=== PATIENT | male | born 1945 | race Caucasian/White ===

== ENCOUNTER 2018-01-22 15:31 | Inpatient (IN) | payer MEDICARE, MEDICAID ==
[~2018-01-22] VITALS: Ht 177.8 cm; Wt 92.1 kg
[2018-01-22] MEDS ORDERED: ASPIR 8181 MG ORAL (15:40)
[2018-01-22] MEDS ORDERED: PATANOL1 DROP OD (15:40)
[2018-01-22] MEDS ORDERED: BENADRYL25 M3 PO ×2 (15:40)
[2018-01-22] MEDS ORDERED: LISINOPRIL20 MG ORAL (15:40)
[2018-01-22] MEDS ORDERED: ATIVAN1 MG ORAL (15:40)
[2018-01-22] MEDS ORDERED: LIPITOR80 MG ORAL (15:40)
[2018-01-22] MEDS ORDERED: ALLEGRA-D 24 H1 EACH PO (15:40)
[2018-01-22] MEDS ORDERED: KENALOG 0.1% CR15 GM APPLIC (15:40)
[2018-01-22] MEDS ORDERED: MOM30 ML ORAL (15:40)
[2018-01-22] MEDS ORDERED: NAMENDA5 MG ORAL (15:40)
[2018-01-22] MEDS ORDERED: METFORMIN HCL850 M1 ORAL (15:40)
[2018-01-22 15:44] VITALS: BP 100/58
--- NOTE | 2018-01-22 16:12 | Emergency Room Report ---
History of Present Illness General Chief Complaint: Skin Rash/Abscess Source: Medical Record, EMS, PMD Present Illness HPI This patient presents from a long term facility. He was sent in by his primary care physician. Apparently the patient has developed a rash and a urinary tract infection. The patient himself has no specific complaints. Patient has a history of CVA with hemiplegia, hypertension, diabetes, hyperlipidemia. Allergies: Coded Allergies: No Known Allergies (Unverified , 01/22/18) Patient History Past Medical History: see triage record, DM, HTN, CA, CAD, GERD, CVA/TIA, psych hx Social History: Denies: smoking, alcohol use, drug use Reviewed Nursing Documentation: PMH: Agreed; PSxH: Agreed Nursing Documentation-PMH Hx Cardiac Problems: Yes - Hypotension, HLD Hx Hypertension: Yes Hx Pacemaker: No Hx Asthma: Yes - Pneumonitis Hx COPD: No Hx Diabetes: No Hx Cancer: No Hx Gastrointestinal Problems: No - GERD Hx Dialysis: No History Of Psychiatric Problem: Yes - Depression, anxiety Hx Neurological Problems: Yes - Dementia, cataract Hx Cerebrovascular Accident: Yes - Cerebral infarction, hemiplegia, hemiparesis Hx Seizures: No Review of Systems All Other Systems: negative except mentioned in HPI Physical Exam Vital Signs Date Time Temp Pulse Resp B/P (MAP) Pulse Ox O2 Delivery O2 Flow Rate FiO2 01/22/18 15:24 97.7 64 16 95/67 93 Room Air Sp02 EP Interpretation: reviewed, normal General Appearance: no apparent distress, alert, GCS 15, non-toxic Head: normocephalic, atraumatic Eyes: bilateral eye normal inspection, bilateral eye PERRL ENT: hearing grossly normal, normal pharynx, no angioedema, normal voice Neck: full range of motion, supple/symm/no masses Respiratory: chest non-tender, lungs clear, normal breath sounds, no respiratory distress, no retraction, no accessory muscle use, speaking full sentences Cardiovascular #1: regular rate, rhythm, no edema Gastrointestinal: normal bowel sounds, non tender, soft, non-distended, no guarding, no rebound Rectal: deferred Musculoskeletal: non-tender, other - hemiplegia at baseline Neurologic: alert, oriented x3, responsive, speech normal, other - Hemiplegia at baseline. Psychiatric: mood/affect normal, no suicidal/homicidal ideation Skin: warm/dry, well hydrated, other - diffuse maculopapular rash with excoriations. Medical Decision Making Diagnostic Impression: Primary Impression: Rash and other nonspecific skin eruption Additional Impression: Lactic acidosis ER Course Patient has a nonspecific diffuse maculopapular rash of uncertain etiology. It appears to be pruritic. Scabies is a possibility. The patient also has lactic acidosis of uncertain etiology. The patient will be admitted for further evaluation and treatment. Laboratory Tests Test 01/22/18 16:35 01/22/18 18:00 White Blood Count 6.5 K/UL (4.8-10.8) Red Blood Count 4.92 M/UL (4.70-6.10) Hemoglobin 14.8 G/DL (14.2-18.0) Hematocrit 43.4 % (42.0-52.0) Mean Corpuscular Volume 88 FL (80-99) Mean Corpuscular Hemoglobin 30.1 PG (27.0-31.0) Mean Corpuscular Hemoglobin Concent 34.1 G/DL (32.0-36.0) Red Cell Distribution Width 11.9 % (11.6-14.8) Platelet Count 203 K/UL (150-450) Mean Platelet Volume 8.7 FL (6.5-10.1) Neutrophils (%) (Auto) 54.1 % (45.0-75.0) Lymphocytes (%) (Auto) 25.8 % (20.0-45.0) Monocytes (%) (Auto) 9.4 % (1.0-10.0) Eosinophils (%) (Auto) 9.9 % (0.0-3.0) H Basophils (%) (Auto) 0.9 % (0.0-2.0) Urine Color Yellow Urine Appearance Clear Urine pH 5 (4.5-8.0) Urine Specific [place] 1.020 (1.005-1.035) Urine Protein Negative (NEGATIVE) Urine Glucose (UA) Negative (NEGATIVE) Urine Ketones Negative (NEGATIVE) Urine Blood Negative (NEGATIVE) Urine Nitrite Negative (NEGATIVE) Urine Bilirubin Negative (NEGATIVE) Urine Urobilinogen 1 MG/DL (0.0-1.0) H Urine Leukocyte Esterase Negative (NEGATIVE) Sodium Level 138 MMOL/L (136-145) Potassium Level 4.3 MMOL/L (3.5-5.1) Chloride Level 104 MMOL/L (98-107) Carbon Dioxide Level 24 MMOL/L (21-32) Anion Gap 10 mmol/L (5-15) Blood Urea Nitrogen 18 mg/dL (7-18) Creatinine 1.1 MG/DL (0.55-1.30) Estimate Glomerular Filtration Rate mL/min (>60) Glucose Level 83 MG/DL (74-106) Lactic Acid Level 4.00 mmol/L (0.4-2.0) H Pending Calcium Level 9.2 MG/DL (8.5-10.1) Total Bilirubin 0.4 MG/DL (0.2-1.0) Aspartate Amino Transferase (AST) 16 U/L (15-37) Alanine Aminotransferase (ALT) 21 U/L (12-78) Alkaline Phosphatase 85 U/L (46-116) Total Creatine Kinase 34 U/L (26-308) Creatine Kinase MB < 0.5 NG/ML (0.0-3.6) Creatine Kinase MB Relative Index 1.4 Troponin I 0.000 ng/mL (0.000-0.056) Total Protein 7.0 G/DL (6.4-8.2) Albumin 3.1 G/DL (3.4-5.0) L Globulin 3.9 g/dL Albumin/Globulin Ratio 0.8 (1.0-2.7) L EKG Diagnostic Results Rate: bradycardiac Rhythm: other - S.bradycardia ST Segments: no acute changes Rhythm Strip Diag. Results EP Interpretation: yes Rate: 60's Rhythm: no PVC's, no ectopy, other - S.bradycardia Chest X-Ray Diagnostic Results Chest X-Ray Diagnostic Results : Chest X-Ray Ordered: Yes # of Views/Limited/Complete: 1 View Indication: Other Interpretation: no consolidation, no effusion, no pneumothorax, no acute cardiopulmonary disease Impression: No acute disease Electronically Signed by: Lo Washington DO Last Vital Signs Date Time Temp Pulse Resp B/P (MAP) Pulse Ox O2 Delivery O2 Flow Rate FiO2 01/22/18 15:44 97.7 65 16 100/58 95 Room Air Disposition: ADMITTED INPATIENT Condition: Stable Referrals: Adis Schneider DO (PCP) Lo Washington DO Jan 22, 2018 16:12
[2018-01-22] MEDS ORDERED: NS 1000ml 2,800 ML IVLG ONE (16:15)
[2018-01-22] MEDS: Cefepime HCl 1 GM in NS 55 ML IV SCH (16:43)
[2018-01-22 17:02] LABS: BASOPHILS % (AUTO) 0.9 % (0.0-2.0); EOSINOPHILS % (AUTO) 9.9 % (0.0-3.0); HEMATOCRIT 43.4 % (42.0-52.0); HEMOGLOBIN 14.8 G/DL (14.2-18.0); LYMPHOCYTES % (AUTO) 25.8 % (20.0-45.0); MEAN CORPUSCULAR VOLUME 88 FL (80-99); MONOCYTES % (AUTO) 9.4 % (1.0-10.0); NEUTROPHILS % (AUTO) 54.1 % (45.0-75.0); PLATELET COUNT 203 K/UL (150-450); RED BLOOD COUNT 4.92 M/UL (4.70-6.10); RED CELL DISTRIBUTION WIDTH 11.9 % (11.6-14.8); WHITE BLOOD COUNT 6.5 K/UL (4.8-10.8)
--- NOTE | 2018-01-22 17:09 | Diagnostic Imaging Report ---
Indication: Shortness of breath Technique: One view of the chest Comparison: none Findings: Patient is rotated to the right. There is questionably some infiltrate in the left infrahilar region. Lungs and pleural spaces are otherwise clear. Heart size is normal. Impression: No acute process; possible minimal left infrahilar infiltrate. Correlate with clinical finding
[2018-01-22 17:12] LABS: APPEARANCE,URINE CLEAR; BILIRUBIN, URINE NEGATIVE (NEGATIVE); COLOR,URINE YELLOW; GLUCOSE, URINE (UA) NEGATIVE (NEGATIVE); KETONES,URINE NEGATIVE (NEGATIVE); LEUKOCYTE ESTERASE ,URINE NEGATIVE (NEGATIVE); NITRITE,URINE NEGATIVE (NEGATIVE); PH,URINE 5 (4.5-8.0); PROTEIN,URINE NEGATIVE (NEGATIVE); UROBILINOGEN,URINE 1 MG/DL (0.0-1.0)
[2018-01-22 17:17] LABS: ANION GAP 10 mmol/L (5-15); BLOOD UREA NITROGEN 18 mg/dL (7-18); CALCIUM 9.2 MG/DL (8.5-10.1); CARBON DIOXIDE 24 MMOL/L (21-32); CHLORIDE 104 MMOL/L (98-107); CREATININE 1.1 MG/DL (0.55-1.30); POTASSIUM 4.3 MMOL/L (3.5-5.1); SODIUM 138 MMOL/L (136-145)
[2018-01-22 17:30] LABS: ALANINE AMINOTRANSFERASE 21 U/L (12-78); ALBUMIN 3.1 G/DL (3.4-5.0); ALBUMIN/GLOBULIN RATIO 0.8 (1.0-2.7); ALKALINE PHOSPHATASE 85 U/L (46-116); ASPARTATE AMINO TRANSFERASE 16 U/L (15-37); BILIRUBIN,TOTAL 0.4 MG/DL (0.2-1.0); CKMB < 0.5 NG/ML (0.0-3.6); CREATINE KINASE 34 U/L (26-308)
[2018-01-22 18:12] VITALS: BP 106/62
[2018-01-22 20:00] VITALS: BP 101/63
[2018-01-22] MEDS ORDERED: LORazepam Inj 2mg/ml 1ml IV PRN (20:00)
[2018-01-22] MEDS ORDERED: Morphine Sulfate 2mg/ml Inj IVP PRN (20:00)
[2018-01-22] MEDS ORDERED: Miralax 17gm pkt ORAL PRN (20:00)
[2018-01-22] MEDS ORDERED: Mylanta II UD 30ml ORAL PRN (20:00)
[2018-01-22] MEDS ORDERED: Zolpidem 5mg tab ORAL PRN (21:00)
[2018-01-22 21:15] VITALS: BP 105/72
[2018-01-22] MEDS: NovoLOG Insulin Flexpen SUBQ SCH (21:30)
[2018-01-22] MEDS: Heparin 5000 units/ml inj SUBQ SCH (21:54)
[2018-01-23] VITALS: BP 112/79
[2018-01-23 04:00] VITALS: BP 117/68
[2018-01-23] MEDS: Cefepime HCl 1 GM in NS 55 ML IV SCH (05:41)
[2018-01-23] MEDS: NovoLOG Insulin Flexpen SUBQ SCH ×4 (06:08→21:00)
[2018-01-23 06:21] LABS: EOSINOPHILS % (AUTO) 10.4 % (0.0-3.0); HEMATOCRIT 40.2 % (42.0-52.0); HEMOGLOBIN 13.9 G/DL (14.2-18.0); LYMPHOCYTES % (AUTO) 28.3 % (20.0-45.0); MEAN CORPUSCULAR VOLUME 88 FL (80-99); MONOCYTES % (AUTO) 8.5 % (1.0-10.0); NEUTROPHILS % (AUTO) 51.8 % (45.0-75.0); PLATELET COUNT 167 K/UL (150-450); RED BLOOD COUNT 4.54 M/UL (4.70-6.10); RED CELL DISTRIBUTION WIDTH 11.5 % (11.6-14.8); WHITE BLOOD COUNT 5.4 K/UL (4.8-10.8)
[2018-01-23 06:38] LABS: ALANINE AMINOTRANSFERASE 22 U/L (12-78); ALBUMIN 2.7 G/DL (3.4-5.0); ALBUMIN/GLOBULIN RATIO 0.7 (1.0-2.7); ALKALINE PHOSPHATASE 75 U/L (46-116); ANION GAP 8 mmol/L (5-15); ASPARTATE AMINO TRANSFERASE 21 U/L (15-37); BILIRUBIN,TOTAL 0.3 MG/DL (0.2-1.0); BLOOD UREA NITROGEN 17 mg/dL (7-18); CALCIUM 8.3 MG/DL (8.5-10.1); CARBON DIOXIDE 25 MMOL/L (21-32); CHLORIDE 108 MMOL/L (98-107); CHOLESTEROL 79 MG/DL (< 200); CREATININE 0.9 MG/DL (0.55-1.30); HDL CHOLESTEROL 27 MG/DL (40-60); POTASSIUM 4.2 MMOL/L (3.5-5.1); SODIUM 141 MMOL/L (136-145); TRIGLYCERIDES 230 MG/DL (30-150)
[2018-01-23 08:00] VITALS: BP 99/70
[2018-01-23] MEDS: Memantine 5 MG TAB ORAL SCH ×2 (08:59→17:07)
[2018-01-23] MEDS: Aspirin EC 81mg tab ORAL SCH (08:59)
[2018-01-23] MEDS: Heparin 5000 units/ml inj SUBQ SCH ×2 (09:00→20:14)
[2018-01-23] MEDS: Lisinopril 20mg tab ORAL SCH (09:00)
--- NOTE | 2018-01-23 11:22 | Consultation ---
History of Present Illness General Date patient seen: Jan 23, 2018 Chief Complaint: Skin Rash/Abscess Present Illness HPI 72 y/o M with hx of DM, HTN, HLD, MDD/Anxiety, Dementia, CAD/IN, GERD, CVA/TIA w / hemiplegia, SNF resident was sent [place] from [place] on 01/22 with rash and concerns for UTI. Patient did not had specific complains. Patient afebrile,. no leukocytosis u/a neg Allergies: Coded Allergies: No Known Allergies (Unverified , 01/22/18) Medication History Scheduled Aspirin* (Aspir 81*), 81 MG ORAL DAILY, (Reported) Atorvastatin (Lipitor), 80 MG ORAL DAILY, (Reported) Diphenhydramine HCl (Benadryl), 25 MG PO BID, (Reported) Lisinopril (Lisinopril*), 20 MG ORAL DAILY, (Reported) Lorazepam* (Ativan*), 1 MG ORAL TWICE A DAY, (Reported) Magnesium Hydroxide (Milk of Magnesia), 30 ML ORAL TWICE A DAY, (Reported) Memantine Hcl* (Namenda*), 5 MG ORAL TWICE A DAY, (Reported) Metformin Hcl* (Metformin Hcl*), 850 MG ORAL TWICE A DAY, (Reported) Olopatadine (Patanol), 1 DROP OD DAILY, (Reported) Miscellaneous Medications Fexofenadine/Pseudoephedrine (Sloane-D 24 Hour Tablet), 1 EACH PO, (Reported) Triamcinolone Acet (Triamcinolone Acetonide), 90 GM APPLIC, (Reported) Patient History Healthcare decision maker N Resuscitation status Full Code Advanced Directive on File Yes Patient History Narrative Pmhx: as above Shx: Denies: smoking, alcohol use, drug use Fhx: non contributory Review of Systems All Other Systems: negative except mentioned in HPI Physical Exam Physical Exam Narrative General Appearance: no apparent distress, alert, , non-toxic HEENT: normocephalic, atraumatic bilateral eye PERRL normal pharynx Neck: full range of motion, supple/symm/no masses Respiratory: chest non-tender, lungs clear, normal breath sounds, no respiratory distress, no retraction, no accessory muscle use, speaking full sentences Cardiovascular : regular rate, rhythm, no edema Gastrointestinal: normal bowel sounds, non tender, soft, non-distended, no guarding, no rebound Musculoskeletal: non-tender, other - hemiplegia at baseline Skin: warm/dry, well hydrated, other - diffuse maculopapular rash with excoriations. Last 24 Hour Vital Signs Date Time Temp Pulse Resp B/P (MAP) Pulse Ox O2 Delivery O2 Flow Rate FiO2 01/23/18 09:00 99/70 01/23/18 09:00 Room Air 01/23/18 08:00 97.5 54 18 99/70 (80) 95 01/23/18 04:00 98.7 75 18 117/68 (84) 96 01/23/18 00:00 98.1 79 18 112/79 (90) 97 01/22/18 21:38 Room Air 01/22/18 21:15 98.0 58 18 105/72 (83) 100 01/22/18 21:05 98.3 63 16 101/63 98 Room Air 01/22/18 20:00 98.3 63 16 101/63 98 Room Air 01/22/18 18:12 97.7 72 16 106/62 98 Room Air 01/22/18 15:44 97.7 65 16 100/58 95 Room Air 01/22/18 15:24 97.7 64 16 95/67 93 Room Air Intake and Output 01/22/18 01/23/18 18:59 06:59 Intake Total 2855 ml Output Total 500 ml Balance 2855 ml -500 ml Intake IV Total 2855 ml Output Urine Total 500 ml # Voids 1 Laboratory Tests Test 01/22/18 16:35 01/22/18 18:00 01/23/18 05:20 White Blood Count 6.5 K/UL (4.8-10.8) 5.4 K/UL (4.8-10.8) Red Blood Count 4.92 M/UL (4.70-6.10) 4.54 M/UL (4.70-6.10) L Hemoglobin 14.8 G/DL (14.2-18.0) 13.9 G/DL (14.2-18.0) L Hematocrit 43.4 % (42.0-52.0) 40.2 % (42.0-52.0) L Mean Corpuscular Volume 88 FL (80-99) 88 FL (80-99) Mean Corpuscular Hemoglobin 30.1 PG (27.0-31.0) 30.5 PG (27.0-31.0) Mean Corpuscular Hemoglobin Concent 34.1 G/DL (32.0-36.0) 34.5 G/DL (32.0-36.0) Red Cell Distribution Width 11.9 % (11.6-14.8) 11.5 % (11.6-14.8) L Platelet Count 203 K/UL (150-450) 167 K/UL (150-450) Mean Platelet Volume 8.7 FL (6.5-10.1) 8.6 FL (6.5-10.1) Neutrophils (%) (Auto) 54.1 % (45.0-75.0) 51.8 % (45.0-75.0) Lymphocytes (%) (Auto) 25.8 % (20.0-45.0) 28.3 % (20.0-45.0) Monocytes (%) (Auto) 9.4 % (1.0-10.0) 8.5 % (1.0-10.0) Eosinophils (%) (Auto) 9.9 % (0.0-3.0) H 10.4 % (0.0-3.0) H Basophils (%) (Auto) 0.9 % (0.0-2.0) 1.0 % (0.0-2.0) Urine Color Yellow Urine Appearance Clear Urine pH 5 (4.5-8.0) Urine Specific [place] 1.020 (1.005-1.035) Urine Protein Negative (NEGATIVE) Urine Glucose (UA) Negative (NEGATIVE) Urine Ketones Negative (NEGATIVE) Urine Blood Negative (NEGATIVE) Urine Nitrite Negative (NEGATIVE) Urine Bilirubin Negative (NEGATIVE) Urine Urobilinogen 1 MG/DL (0.0-1.0) H Urine Leukocyte Esterase Negative (NEGATIVE) Sodium Level 138 MMOL/L (136-145) 141 MMOL/L (136-145) Potassium Level 4.3 MMOL/L (3.5-5.1) 4.2 MMOL/L (3.5-5.1) Chloride Level 104 MMOL/L (98-107) 108 MMOL/L (98-107) H Carbon Dioxide Level 24 MMOL/L (21-32) 25 MMOL/L (21-32) Anion Gap 10 mmol/L (5-15) 8 mmol/L (5-15) Blood Urea Nitrogen 18 mg/dL (7-18) 17 mg/dL (7-18) Creatinine 1.1 MG/DL (0.55-1.30) 0.9 MG/DL (0.55-1.30) Estimat Glomerular Filtration Rate mL/min (>60) mL/min (>60) Glucose Level 83 MG/DL (74-106) 98 MG/DL (74-106) Lactic Acid Level 4.00 mmol/L (0.4-2.0) H 3.30 mmol/L (0.66-2.22) H Calcium Level 9.2 MG/DL (8.5-10.1) 8.3 MG/DL (8.5-10.1) L Total Bilirubin 0.4 MG/DL (0.2-1.0) 0.3 MG/DL (0.2-1.0) Aspartate Amino Transf (AST/SGOT) 16 U/L (15-37) 21 U/L (15-37) Alanine Aminotransferase (ALT/SGPT) 21 U/L (12-78) 22 U/L (12-78) Alkaline Phosphatase 85 U/L (46-116) 75 U/L (46-116) Total Creatine Kinase 34 U/L (26-308) Creatine Kinase MB < 0.5 NG/ML (0.0-3.6) Creatine Kinase MB Relative Index 1.4 Troponin I 0.000 ng/mL (0.000-0.056) Total Protein 7.0 G/DL (6.4-8.2) 6.4 G/DL (6.4-8.2) Albumin 3.1 G/DL (3.4-5.0) L 2.7 G/DL (3.4-5.0) L Globulin 3.9 g/dL 3.7 g/dL Albumin/Globulin Ratio 0.8 (1.0-2.7) L 0.7 (1.0-2.7) L Triglycerides Level 230 MG/DL (30-150) H Cholesterol Level 79 MG/DL (< 200) LDL Cholesterol 46 mg/dL (<100) HDL Cholesterol 27 MG/DL (40-60) L Cholesterol/HDL Ratio 2.9 (3.3-4.4) L Height (Feet): 5 Height (Inches): 10.00 Weight (Pounds): 203 Medications Current Medications Medications (Trade) Dose Ordered Sig/Jane Route PRN Reason Start Time Stop Time Status Last Admin Dose Admin Acetaminophen (Tylenol) 650 mg Q4H PRN ORAL T>100.5 01/22/18 20:00 02/21/18 19:59 Al Hydroxide/Mg Hydroxide (Mylanta II) 30 ml Q6H PRN ORAL dyspepsia 01/22/18 20:00 02/21/18 19:59 Aspirin (Ecotrin) 81 mg DAILY ORAL 01/23/18 09:00 02/22/18 08:59 01/23/18 08:59 Cefepime HCl 1 gm/ Dextrose 55 ml @ 110 mls/hr Q12H IVPB 01/23/18 17:00 01/30/18 16:59 Dextrose (Dextrose 50%) 25 ml Q30M PRN IV Hypoglycemia 01/22/18 20:00 02/21/18 19:59 Dextrose (Dextrose 50%) 50 ml Q30M PRN IV Hypoglycemia 01/22/18 20:00 02/21/18 19:59 Heparin Sodium (Porcine) (Heparin 5000 units/ml) 5,000 units EVERY 12 HOURS SUBQ 01/22/18 21:00 02/21/18 20:59 01/23/18 09:00 Insulin Aspart (NovoLOG) BEFORE MEALS AND HS SUBQ 01/22/18 21:30 02/21/18 21:29 Lisinopril (Prinivil) 20 mg DAILY ORAL 01/23/18 09:00 02/22/18 08:59 Lorazepam (Ativan 2mg/ml 1ml) 0.5 mg Q4H PRN IV For Anxiety 01/22/18 20:00 01/29/18 19:59 Memantine (Namenda) 5 mg TWICE A DAY ORAL 01/23/18 09:00 02/22/18 08:59 01/23/18 08:59 Morphine Sulfate (Morphine Sulfate) 1 mg Q4H PRN IVP Pain 4-10 01/22/18 20:00 01/29/18 19:59 Ondansetron HCl (Zofran) 4 mg Q6H PRN IVP Nausea & Vomiting 01/22/18 20:00 02/21/18 19:59 Polyethylene Glycol (Miralax) 17 gm HSPRN PRN ORAL Constipation 01/22/18 20:00 02/21/18 19:59 Zolpidem Tartrate (Ambien) 5 mg HSPRN PRN ORAL Insomnia 01/22/18 21:00 01/29/18 20:59 Assessment/Plan Assessment/Plan Abx: Cefepime 01/22 Assessment: Rash- likely 2ry to Scabies Afebrile No leukocytosis- no evidence of UTI -u/a neg -CXR: no acute disease DM HTN HLD MDD/Anxiety Dementia, CAD/IN GERD CVA/TIA w/ hemiplegia SNF resident Plan:\ -D/C Cefepime #2 and monitor off abx -Permethrin cream and ivermectin x1 -f/u cx -Monitor CBC/CMP, temperatures -scabies precautions Thank you for this consultation. Will continue to follow along with you. Discussed with Olivia Omalley M.D. Jan 23, 2018 11:22
[2018-01-23 12:00] VITALS: BP 102/60
--- NOTE | 2018-01-23 12:41 | Consultation ---
History of Present Illness General Date patient seen: Jan 23, 2018 Chief Complaint: Skin Rash/Abscess Present Illness HPI 72 year old male with hx of DM, HTN, AR, CAD, GERD, CVA/TIA, with hemiplegia, psych hx. from [facility] facility presented to ER with CC of rash and a urinary tract infection. Pt has a high lactic acid level and was started on Cefepime in ER and admitted for further evaluation. Allergies: Coded Allergies: No Known Allergies (Unverified , 01/22/18) Medication History Scheduled Aspirin* (Aspir 81*), 81 MG ORAL DAILY, (Reported) Atorvastatin (Lipitor), 80 MG ORAL DAILY, (Reported) Diphenhydramine HCl (Benadryl), 25 MG PO BID, (Reported) Lisinopril (Lisinopril*), 20 MG ORAL DAILY, (Reported) Lorazepam* (Ativan*), 1 MG ORAL TWICE A DAY, (Reported) Magnesium Hydroxide (Milk of Magnesia), 30 ML ORAL TWICE A DAY, (Reported) Memantine Hcl* (Namenda*), 5 MG ORAL TWICE A DAY, (Reported) Metformin Hcl* (Metformin Hcl*), 850 MG ORAL TWICE A DAY, (Reported) Olopatadine (Patanol), 1 DROP OD DAILY, (Reported) Miscellaneous Medications Fexofenadine/Pseudoephedrine (Sloane-D 24 Hour Tablet), 1 EACH PO, (Reported) Triamcinolone Acet (Triamcinolone Acetonide), 90 GM APPLIC, (Reported) Patient History Healthcare decision maker N Resuscitation status Full Code Advanced Directive on File Yes Past Medical/Surgical History Past Medical/Surgical History: (1) Diabetes mellitus (2) CVA, old, hemiparesis (3) Hypertension Review of Systems All Other Systems: negative except mentioned in HPI Physical Exam General Appearance: WD/WN Lines, tubes and drains: peripheral HEENT: normocephalic, atraumatic Neck: non-tender, normal alignment Respiratory/Chest: chest wall non-tender, lungs clear Cardiovascular/Chest: normal peripheral pulses, normal rate Abdomen: normal bowel sounds, non tender Genitourinary/Rectal: normal genital exam Extremities: normal range of motion 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 Last 24 Hour Vital Signs Date Time Temp Pulse Resp B/P (MAP) Pulse Ox O2 Delivery O2 Flow Rate FiO2 01/23/18 12:00 97.4 55 18 102/60 (74) 100 01/23/18 09:00 99/70 01/23/18 09:00 Room Air 01/23/18 08:00 97.5 54 18 99/70 (80) 95 01/23/18 04:00 98.7 75 18 117/68 (84) 96 01/23/18 00:00 98.1 79 18 112/79 (90) 97 01/22/18 21:38 Room Air 01/22/18 21:15 98.0 58 18 105/72 (83) 100 01/22/18 21:05 98.3 63 16 101/63 98 Room Air 01/22/18 20:00 98.3 63 16 101/63 98 Room Air 01/22/18 18:12 97.7 72 16 106/62 98 Room Air 01/22/18 15:44 97.7 65 16 100/58 95 Room Air 01/22/18 15:24 97.7 64 16 95/67 93 Room Air Intake and Output 01/22/18 01/23/18 18:59 06:59 Intake Total 2855 ml Output Total 500 ml Balance 2855 ml -500 ml Intake IV Total 2855 ml Output Urine Total 500 ml # Voids 1 Laboratory Tests Test 01/22/18 16:35 01/22/18 18:00 01/23/18 05:20 White Blood Count 6.5 K/UL (4.8-10.8) 5.4 K/UL (4.8-10.8) Red Blood Count 4.92 M/UL (4.70-6.10) 4.54 M/UL (4.70-6.10) L Hemoglobin 14.8 G/DL (14.2-18.0) 13.9 G/DL (14.2-18.0) L Hematocrit 43.4 % (42.0-52.0) 40.2 % (42.0-52.0) L Mean Corpuscular Volume 88 FL (80-99) 88 FL (80-99) Mean Corpuscular Hemoglobin 30.1 PG (27.0-31.0) 30.5 PG (27.0-31.0) Mean Corpuscular Hemoglobin Concent 34.1 G/DL (32.0-36.0) 34.5 G/DL (32.0-36.0) Red Cell Distribution Width 11.9 % (11.6-14.8) 11.5 % (11.6-14.8) L Platelet Count 203 K/UL (150-450) 167 K/UL (150-450) Mean Platelet Volume 8.7 FL (6.5-10.1) 8.6 FL (6.5-10.1) Neutrophils (%) (Auto) 54.1 % (45.0-75.0) 51.8 % (45.0-75.0) Lymphocytes (%) (Auto) 25.8 % (20.0-45.0) 28.3 % (20.0-45.0) Monocytes (%) (Auto) 9.4 % (1.0-10.0) 8.5 % (1.0-10.0) Eosinophils (%) (Auto) 9.9 % (0.0-3.0) H 10.4 % (0.0-3.0) H Basophils (%) (Auto) 0.9 % (0.0-2.0) 1.0 % (0.0-2.0) Urine Color Yellow Urine Appearance Clear Urine pH 5 (4.5-8.0) Urine Specific [place] 1.020 (1.005-1.035) Urine Protein Negative (NEGATIVE) Urine Glucose (UA) Negative (NEGATIVE) Urine Ketones Negative (NEGATIVE) Urine Blood Negative (NEGATIVE) Urine Nitrite Negative (NEGATIVE) Urine Bilirubin Negative (NEGATIVE) Urine Urobilinogen 1 MG/DL (0.0-1.0) H Urine Leukocyte Esterase Negative (NEGATIVE) Sodium Level 138 MMOL/L (136-145) 141 MMOL/L (136-145) Potassium Level 4.3 MMOL/L (3.5-5.1) 4.2 MMOL/L (3.5-5.1) Chloride Level 104 MMOL/L (98-107) 108 MMOL/L (98-107) H Carbon Dioxide Level 24 MMOL/L (21-32) 25 MMOL/L (21-32) Anion Gap 10 mmol/L (5-15) 8 mmol/L (5-15) Blood Urea Nitrogen 18 mg/dL (7-18) 17 mg/dL (7-18) Creatinine 1.1 MG/DL (0.55-1.30) 0.9 MG/DL (0.55-1.30) Estimat Glomerular Filtration Rate mL/min (>60) mL/min (>60) Glucose Level 83 MG/DL (74-106) 98 MG/DL (74-106) Lactic Acid Level 4.00 mmol/L (0.4-2.0) H 3.30 mmol/L (0.66-2.22) H Calcium Level 9.2 MG/DL (8.5-10.1) 8.3 MG/DL (8.5-10.1) L Total Bilirubin 0.4 MG/DL (0.2-1.0) 0.3 MG/DL (0.2-1.0) Aspartate Amino Transf (AST/SGOT) 16 U/L (15-37) 21 U/L (15-37) Alanine Aminotransferase (ALT/SGPT) 21 U/L (12-78) 22 U/L (12-78) Alkaline Phosphatase 85 U/L (46-116) 75 U/L (46-116) Total Creatine Kinase 34 U/L (26-308) Creatine Kinase MB < 0.5 NG/ML (0.0-3.6) Creatine Kinase MB Relative Index 1.4 Troponin I 0.000 ng/mL (0.000-0.056) Total Protein 7.0 G/DL (6.4-8.2) 6.4 G/DL (6.4-8.2) Albumin 3.1 G/DL (3.4-5.0) L 2.7 G/DL (3.4-5.0) L Globulin 3.9 g/dL 3.7 g/dL Albumin/Globulin Ratio 0.8 (1.0-2.7) L 0.7 (1.0-2.7) L Triglycerides Level 230 MG/DL (30-150) H Cholesterol Level 79 MG/DL (< 200) LDL Cholesterol 46 mg/dL (<100) HDL Cholesterol 27 MG/DL (40-60) L Cholesterol/HDL Ratio 2.9 (3.3-4.4) L Height (Feet): 5 Height (Inches): 10.00 Weight (Pounds): 203 Medications Current Medications Medications (Trade) Dose Ordered Sig/Jane Route PRN Reason Start Time Stop Time Status Last Admin Dose Admin Acetaminophen (Tylenol) 650 mg Q4H PRN ORAL T>100.5 01/22/18 20:00 02/21/18 19:59 Al Hydroxide/Mg Hydroxide (Mylanta II) 30 ml Q6H PRN ORAL dyspepsia 01/22/18 20:00 02/21/18 19:59 Aspirin (Ecotrin) 81 mg DAILY ORAL 01/23/18 09:00 02/22/18 08:59 01/23/18 08:59 Cefepime HCl 1 gm/ Dextrose 55 ml @ 110 mls/hr Q12H IVPB 01/23/18 17:00 01/30/18 16:59 Dextrose (Dextrose 50%) 25 ml Q30M PRN IV Hypoglycemia 01/22/18 20:00 02/21/18 19:59 Dextrose (Dextrose 50%) 50 ml Q30M PRN IV Hypoglycemia 01/22/18 20:00 02/21/18 19:59 Heparin Sodium (Porcine) (Heparin 5000 units/ml) 5,000 units EVERY 12 HOURS SUBQ 01/22/18 21:00 02/21/18 20:59 01/23/18 09:00 Insulin Aspart (NovoLOG) BEFORE MEALS AND HS SUBQ 01/22/18 21:30 02/21/18 21:29 Lisinopril (Prinivil) 20 mg DAILY ORAL 01/23/18 09:00 02/22/18 08:59 Lorazepam (Ativan 2mg/ml 1ml) 0.5 mg Q4H PRN IV For Anxiety 01/22/18 20:00 01/29/18 19:59 Memantine (Namenda) 5 mg TWICE A DAY ORAL 01/23/18 09:00 02/22/18 08:59 01/23/18 08:59 Morphine Sulfate (Morphine Sulfate) 1 mg Q4H PRN IVP Pain 4-10 01/22/18 20:00 01/29/18 19:59 Ondansetron HCl (Zofran) 4 mg Q6H PRN IVP Nausea & Vomiting 01/22/18 20:00 02/21/18 19:59 Polyethylene Glycol (Miralax) 17 gm HSPRN PRN ORAL Constipation 12/6/18 20:00 02/21/18 19:59 Zolpidem Tartrate (Ambien) 5 mg HSPRN PRN ORAL Insomnia 01/22/18 21:00 01/29/18 20:59 Assessment/Plan Problem List: (1) Pyelonephritis ICD Codes: N12 - Tubulo-interstitial nephritis, not specified as acute or chronic SNOMED: 78465536 (2) Rash and other nonspecific skin eruption ICD Codes: R21 - Rash and other nonspecific skin eruption SNOMED: 267467651, 787481390 (3) CVA, old, hemiparesis ICD Codes: I69.359 - Hemiplegia and hemiparesis following cerebral infarction affecting unspecified side SNOMED: 086052854 (4) Hypertension ICD Codes: I10 - Essential (primary) hypertension SNOMED: 40599145 (5) Diabetes mellitus ICD Codes: E11.9 - Type 2 diabetes mellitus without complications SNOMED: 04103548 Assessment/Plan hernandez cultures abx as per ID symptomatic treatment sliding scale diabetic diet Ryan Norris MD Jan 23, 2018 12:41
[2018-01-23 16:00] VITALS: BP 116/73
[2018-01-23] MEDS ORDERED: Cefepime HCl 1 GM in D5W 55 ML IVPB SCH (17:00)
--- NOTE | 2018-01-23 17:45 | History and Physical Report ---
DATE OF ADMISSION: 01/22/2018 TIME SEEN: 11 a.m. CONSULTANTS: 1. Danish Alvares M.D 2. Ryan Norris M.D. CHIEF COMPLAINT: Unresolved rash for three weeks and lactic acidosis. BRIEF HISTORY: This 72-year-old male from [facility] presented to [facility] last night with an unresolved rash in the left shoulder and chest area for three weeks required treatment. The patient diagnosed with the above, lactic acidosis, weakness, failure to thrive, admitted to medical floor for further treatment. Currently, calm, in bed, no complaints other than slight itch. No chest pain. No shortness of breath. No nausea, vomiting, or diarrhea. PAST MEDICAL HISTORY: Includes failure to thrive, weakness, rash, hypertension. PAST SURGICAL HISTORY: None. MEDICATIONS: Include cefepime, aspirin, lisinopril, memantine, insulin Aspart, zolpidem, heparin, morphine, Zofran. ALLERGIES: Denies. SOCIAL HISTORY: Positive smoking. No alcohol. No intravenous drug abuse. FAMILY HISTORY: Noncontributory. PHYSICAL EXAMINATION: GENERAL: Calm in bed, oriented x2, in no acute distress. VITAL SIGNS: Temperature 97, pulse 54, respirations 18, and blood pressure 99/70. CARDIOVASCULAR: No murmurs. LUNGS: Distant and clear. ABDOMEN: Bowel sounds positive. Soft, nontender, nondistended. EXTREMITIES: No cyanosis, clubbing, or edema. NEUROLOGIC: The patient moves all extremities, slightly weak. SKIN: Left upper arm and bilateral chest area with scratches and rash, slight scabbing over. LABORATORY AND DIAGNOSTIC DATA: Hemoglobin 13.9, otherwise CBC is normal. BMP shows chloride 108, calcium 8.3, albumin 2.7, otherwise CMP is normal. Urinalysis is negative. ASSESSMENT: 1. Rash. 2. Lactic acidosis. 3. Malnutrition. 4. Hypertension. 5. Diabetes. 6. Weakness. 7. Failure to thrive. PLAN: 1. Wound care. 2. Antibiotics per infectious diseases. 3. 4. OT, PT, and dietary evaluation. 5. CBC and BMP in the morning. 6. Resume home medications. 7. We will continue to follow the patient medically. Adis Schneider D.O. DR: [place] JOB#: [id number] CC:
[2018-01-23 20:00] VITALS: BP 136/91
[2018-01-24] VITALS: BP 143/84
[2018-01-24 04:00] VITALS: BP 155/96
[2018-01-24] MEDS: NovoLOG Insulin Flexpen SUBQ SCH ×4 (06:22→20:53)
[2018-01-24 07:24] LABS: BASOPHILS % (AUTO) 0.6 % (0.0-2.0); EOSINOPHILS % (AUTO) 9.1 % (0.0-3.0); HEMATOCRIT 41.8 % (42.0-52.0); HEMOGLOBIN 14.7 G/DL (14.2-18.0); LYMPHOCYTES % (AUTO) 25.6 % (20.0-45.0); MEAN CORPUSCULAR VOLUME 88 FL (80-99); MONOCYTES % (AUTO) 10.2 % (1.0-10.0); NEUTROPHILS % (AUTO) 54.5 % (45.0-75.0); PLATELET COUNT 180 K/UL (150-450); RED BLOOD COUNT 4.77 M/UL (4.70-6.10); RED CELL DISTRIBUTION WIDTH 11.6 % (11.6-14.8); WHITE BLOOD COUNT 4.9 K/UL (4.8-10.8)
[2018-01-24 07:38] LABS: ANION GAP 8 mmol/L (5-15); BLOOD UREA NITROGEN 13 mg/dL (7-18); CARBON DIOXIDE 26 MMOL/L (21-32); CHLORIDE 105 MMOL/L (98-107); CREATININE 0.8 MG/DL (0.55-1.30); POTASSIUM 3.9 MMOL/L (3.5-5.1); SODIUM 139 MMOL/L (136-145)
[2018-01-24 08:00] VITALS: BP 115/76
--- NOTE | 2018-01-24 08:32 | General Progress Note ---
Assessment/Plan Problem List: (1) Malnutrition ICD Codes: E46 - Unspecified protein-calorie malnutrition SNOMED: 12366681 (2) FTT (failure to thrive) in adult ICD Codes: R62.7 - Adult failure to thrive SNOMED: 824522697 (3) Lactic acidosis ICD Codes: E87.2 - Acidosis SNOMED: 10714304 (4) Diabetes mellitus ICD Codes: E11.9 - Type 2 diabetes mellitus without complications SNOMED: 49763537 (5) Hypertension ICD Codes: I10 - Essential (primary) hypertension SNOMED: 64411251 (6) Rash and other nonspecific skin eruption ICD Codes: R21 - Rash and other nonspecific skin eruption SNOMED: 623480100, 251448042 Status: stable, progressing Assessment/Plan ot pt diet wound care abx cbc bmp am Subjective Constitutional: Reports: weakness Allergies: Coded Allergies: No Known Allergies (Unverified , 01/22/18) All Systems: reviewed and negative except above Subjective sleepy calm Objective Last 24 Hour Vital Signs Date Time Temp Pulse Resp B/P (MAP) Pulse Ox O2 Delivery O2 Flow Rate FiO2 01/24/18 08:00 98.8 55 18 115/76 (89) 95 01/24/18 04:00 97.5 59 20 155/96 (115) 100 01/24/18 00:00 97.3 55 18 143/84 (103) 96 01/23/18 21:00 Room Air 01/23/18 20:00 97.0 57 20 136/91 (106) 96 01/23/18 16:00 98.1 65 18 116/73 (87) 96 01/23/18 12:00 97.4 55 18 102/60 (74) 100 01/23/18 09:00 99/70 01/23/18 09:00 Room Air Intake and Output 01/23/18 01/24/18 19:00 07:00 Intake Total 800 ml 120 ml Balance 800 ml 120 ml Intake Oral 120 ml Other 800 ml # Voids 3 2 # Bowel Movements 1 Laboratory Tests 01/24/18 05:59: White Blood Count 4.9, Red Blood Count 4.77, Hemoglobin 14.7, Hematocrit 41.8L, Mean Corpuscular Volume 88, Mean Corpuscular Hemoglobin 30.9, Mean Corpuscular Hemoglobin Concent 35.2, Red Cell Distribution Width 11.6, Platelet Count 180, Mean Platelet Volume 9.0, Neutrophils (%) (Auto) 54.5, Lymphocytes (%) (Auto) 25.6, Monocytes (%) (Auto) 10.2H, Eosinophils (%) (Auto) 9.1H, Basophils (%) ( Auto) 0.6, Sodium Level 139, Potassium Level 3.9, Chloride Level 105, Carbon Dioxide Level 26, Anion Gap 8, Blood Urea Nitrogen 13, Creatinine 0.8, Estimat Glomerular Filtration Rate , Glucose Level 108H, Calcium Level 9.0 Height (Feet): 5 Height (Inches): 10.00 Weight (Pounds): 203 General Appearance: lethargic EENT: normal ENT inspection Neck: normal alignment Cardiovascular: normal peripheral pulses, normal rate, regular rhythm Respiratory/Chest: chest wall non-tender, lungs clear, normal breath sounds Abdomen: normal bowel sounds, non tender, soft Extremities: normal inspection Edema: no edema noted Arm (L), no edema noted Arm (R), no edema noted Leg (L), no edema noted Leg (R), no edema noted Pedal (L), no edema noted Pedal (R), no edema noted Generalized Neurologic: motor weakness Skin: normal pigmentation, warm/dry Objective dry scabbing rashs l shoulder and chest Adis Schneider DO Jan 24, 2018 08:32
--- NOTE | 2018-01-24 08:37 | Pulmonology Progress Note ---
Assessment/Plan Problems: (1) Pyelonephritis (2) Rash and other nonspecific skin eruption (3) CVA, old, hemiparesis (4) Hypertension (5) Diabetes mellitus Assessment/Plan wbc wnl, urine is clear, afebrile, doubt sepsis and pyelonephritis ?etiology of rash, contact dermatitis? sliding scale diabetic diet symptomatic treatment Subjective ROS Limited/Unobtainable: No Constitutional: Reports: no symptoms HEENT: Repors: no symptoms Allergies: Coded Allergies: No Known Allergies (Unverified , 01/22/18) Objective Last 24 Hour Vital Signs Date Time Temp Pulse Resp B/P (MAP) Pulse Ox O2 Delivery O2 Flow Rate FiO2 01/24/18 08:00 98.8 55 18 115/76 (89) 95 01/24/18 04:00 97.5 59 20 155/96 (115) 100 01/24/18 00:00 97.3 55 18 143/84 (103) 96 01/23/18 21:00 Room Air 01/23/18 20:00 97.0 57 20 136/91 (106) 96 01/23/18 16:00 98.1 65 18 116/73 (87) 96 01/23/18 12:00 97.4 55 18 102/60 (74) 100 01/23/18 09:00 99/70 01/23/18 09:00 Room Air Intake and Output 01/23/18 01/24/18 19:00 07:00 Intake Total 800 ml 120 ml Balance 800 ml 120 ml Intake Oral 120 ml Other 800 ml # Voids 3 2 # Bowel Movements 1 Objective General Appearance: WD/WN HEENT: normocephalic Respiratory/Chest: chest wall non-tender, lungs clear, normal breath sounds Cardiovascular: normal peripheral pulses, normal rate Abdomen: normal bowel sounds, soft, non tender Genitourinary: normal external genitalia Extremities: no clubbing Skin: no rash Microbiology Date/Time Source Procedure Growth Status 01/22/18 14:45 Rectum VRE Culture - Final NO VANCOMYCIN RESISTANT ENTEROCOCCUS ... Complete 01/22/18 14:45 Rectum - Final NO CARBAPENEM-RESISTANT ENTEROBACTERI... Complete Laboratory Tests 01/24/18 05:59: White Blood Count 4.9, Red Blood Count 4.77, Hemoglobin 14.7, Hematocrit 41.8L, Mean Corpuscular Volume 88, Mean Corpuscular Hemoglobin 30.9, Mean Corpuscular Hemoglobin Concent 35.2, Red Cell Distribution Width 11.6, Platelet Count 180, Mean Platelet Volume 9.0, Neutrophils (%) (Auto) 54.5, Lymphocytes (%) (Auto) 25.6, Monocytes (%) (Auto) 10.2H, Eosinophils (%) (Auto) 9.1H, Basophils (%) ( Auto) 0.6, Sodium Level 139, Potassium Level 3.9, Chloride Level 105, Carbon Dioxide Level 26, Anion Gap 8, Blood Urea Nitrogen 13, Creatinine 0.8, Estimat Glomerular Filtration Rate , Glucose Level 108H, Calcium Level 9.0 Current Medications Medications (Trade) Dose Ordered Sig/Jane Route PRN Reason Start Time Stop Time Status Last Admin Dose Admin Acetaminophen (Tylenol) 650 mg Q4H PRN ORAL T>100.5 01/22/18 20:00 02/21/18 19:59 Al Hydroxide/Mg Hydroxide (Mylanta II) 30 ml Q6H PRN ORAL dyspepsia 01/22/18 20:00 02/21/18 19:59 Aspirin (Ecotrin) 81 mg DAILY ORAL 01/23/18 09:00 02/22/18 08:59 01/23/18 08:59 Dextrose (Dextrose 50%) 25 ml Q30M PRN IV Hypoglycemia 01/22/18 20:00 02/21/18 19:59 Dextrose (Dextrose 50%) 50 ml Q30M PRN IV Hypoglycemia 01/22/18 20:00 02/21/18 19:59 Heparin Sodium (Porcine) (Heparin 5000 units/ml) 5,000 units EVERY 12 HOURS SUBQ 01/22/18 21:00 02/21/18 20:59 01/23/18 20:14 Insulin Aspart (NovoLOG) BEFORE MEALS AND HS SUBQ 01/22/18 21:30 02/21/18 21:29 Lisinopril (Prinivil) 20 mg DAILY ORAL 01/23/18 09:00 02/22/18 08:59 Lorazepam (Ativan 2mg/ml 1ml) 0.5 mg Q4H PRN IV For Anxiety 01/22/18 20:00 01/29/18 19:59 Memantine (Namenda) 5 mg TWICE A DAY ORAL 12/7/18 09:00 02/22/18 08:59 01/23/18 17:07 Morphine Sulfate (Morphine Sulfate) 1 mg Q4H PRN IVP Pain 4-10 01/22/18 20:00 01/29/18 19:59 Ondansetron HCl (Zofran) 4 mg Q6H PRN IVP Nausea & Vomiting 01/22/18 20:00 02/21/18 19:59 Polyethylene Glycol (Miralax) 17 gm HSPRN PRN ORAL Constipation 01/22/18 20:00 02/21/18 19:59 Zolpidem Tartrate (Ambien) 5 mg HSPRN PRN ORAL Insomnia 01/22/18 21:00 01/29/18 20:59 Ryan Norris MD Jan 24, 2018 08:37
[2018-01-24] MEDS: Lisinopril 20mg tab ORAL SCH (09:00)
--- NOTE | 2018-01-24 09:04 | Infectious Diseases Prog Note ---
Assessment/Plan Assessment/Plan Assessment: Rash- likely 2ry to Scabies Afebrile No leukocytosis- no evidence of UTI -u/a neg -CXR: no acute disease DM HTN HLD MDD/Anxiety Dementia, CAD/AL GERD CVA/TIA w/ hemiplegia SNF resident Plan: - monitor off abx 01/23 SP Permethrin cream and ivermectin x1 ( Rpt in 1 wk ) 01/23 Sp Cefepime #2 -f/u cx -Monitor CBC/CMP, temperatures -scabies precautions Subjective Allergies: Coded Allergies: No Known Allergies (Unverified , 01/22/18) Subjective Afebrile Objective Vital Signs Last 24 Hour Vital Signs Date Time Temp Pulse Resp B/P (MAP) Pulse Ox O2 Delivery O2 Flow Rate FiO2 01/24/18 08:00 98.8 55 18 115/76 (89) 95 01/24/18 04:00 97.5 59 20 155/96 (115) 100 01/24/18 00:00 97.3 55 18 143/84 (103) 96 01/23/18 21:00 Room Air 01/23/18 20:00 97.0 57 20 136/91 (106) 96 01/23/18 16:00 98.1 65 18 116/73 (87) 96 01/23/18 12:00 97.4 55 18 102/60 (74) 100 Height (Feet): 5 Height (Inches): 10.00 Weight (Pounds): 203 HEENT: anicteric Respiratory/Chest: no respiratory distress Cardiovascular: regular rhythm Abdomen: no organomegaly Microbiology Date/Time Source Procedure Growth Status 01/22/18 14:45 Rectum VRE Culture - Final NO VANCOMYCIN RESISTANT ENTEROCOCCUS ... Complete 01/22/18 14:45 Rectum - Final NO CARBAPENEM-RESISTANT ENTEROBACTERI... Complete Laboratory Tests Test 01/24/18 05:59 White Blood Count 4.9 K/UL (4.8-10.8) Red Blood Count 4.77 M/UL (4.70-6.10) Hemoglobin 14.7 G/DL (14.2-18.0) Hematocrit 41.8 % (42.0-52.0) L Mean Corpuscular Volume 88 FL (80-99) Mean Corpuscular Hemoglobin 30.9 PG (27.0-31.0) Mean Corpuscular Hemoglobin Concent 35.2 G/DL (32.0-36.0) Red Cell Distribution Width 11.6 % (11.6-14.8) Platelet Count 180 K/UL (150-450) Mean Platelet Volume 9.0 FL (6.5-10.1) Neutrophils (%) (Auto) 54.5 % (45.0-75.0) Lymphocytes (%) (Auto) 25.6 % (20.0-45.0) Monocytes (%) (Auto) 10.2 % (1.0-10.0) H Eosinophils (%) (Auto) 9.1 % (0.0-3.0) H Basophils (%) (Auto) 0.6 % (0.0-2.0) Sodium Level 139 MMOL/L (136-145) Potassium Level 3.9 MMOL/L (3.5-5.1) Chloride Level 105 MMOL/L (98-107) Carbon Dioxide Level 26 MMOL/L (21-32) Anion Gap 8 mmol/L (5-15) Blood Urea Nitrogen 13 mg/dL (7-18) Creatinine 0.8 MG/DL (0.55-1.30) Estimat Glomerular Filtration Rate mL/min (>60) Glucose Level 108 MG/DL (74-106) H Calcium Level 9.0 MG/DL (8.5-10.1) Current Medications Medications (Trade) Dose Ordered Sig/Jane Route PRN Reason Start Time Stop Time Status Last Admin Dose Admin Acetaminophen (Tylenol) 650 mg Q4H PRN ORAL T>100.5 01/22/18 20:00 02/21/18 19:59 Al Hydroxide/Mg Hydroxide (Mylanta II) 30 ml Q6H PRN ORAL dyspepsia 01/22/18 20:00 02/21/18 19:59 Aspirin (Ecotrin) 81 mg DAILY ORAL 01/23/18 09:00 02/22/18 08:59 01/23/18 08:59 Dextrose (Dextrose 50%) 25 ml Q30M PRN IV Hypoglycemia 01/22/18 20:00 02/21/18 19:59 Dextrose (Dextrose 50%) 50 ml Q30M PRN IV Hypoglycemia 01/22/18 20:00 02/21/18 19:59 Heparin Sodium (Porcine) (Heparin 5000 units/ml) 5,000 units EVERY 12 HOURS SUBQ 01/22/18 21:00 02/21/18 20:59 01/23/18 20:14 Insulin Aspart (NovoLOG) BEFORE MEALS AND HS SUBQ 01/22/18 21:30 02/21/18 21:29 Lisinopril (Prinivil) 20 mg DAILY ORAL 01/23/18 09:00 02/22/18 08:59 Lorazepam (Ativan 2mg/ml 1ml) 0.5 mg Q4H PRN IV For Anxiety 01/22/18 20:00 01/29/18 19:59 Memantine (Namenda) 5 mg TWICE A DAY ORAL 01/23/18 09:00 02/22/18 08:59 01/23/18 17:07 Morphine Sulfate (Morphine Sulfate) 1 mg Q4H PRN IVP Pain 4-10 01/22/18 20:00 01/29/18 19:59 Ondansetron HCl (Zofran) 4 mg Q6H PRN IVP Nausea & Vomiting 01/22/18 20:00 02/21/18 19:59 Polyethylene Glycol (Miralax) 17 gm HSPRN PRN ORAL Constipation 01/22/18 20:00 02/21/18 19:59 Zolpidem Tartrate (Ambien) 5 mg HSPRN PRN ORAL Insomnia 01/22/18 21:00 01/29/18 20:59 Danish Alvares MD Jan 24, 2018 09:04
[2018-01-24] MEDS: Memantine 5 MG TAB ORAL SCH ×2 (09:12→16:57)
[2018-01-24] MEDS: Aspirin EC 81mg tab ORAL SCH (09:12)
[2018-01-24] MEDS: Heparin 5000 units/ml inj SUBQ SCH ×2 (09:13→21:20)
[2018-01-24 12:00] VITALS: BP 118/74
[2018-01-24 16:00] VITALS: BP 121/79
[2018-01-24] MEDS ORDERED: NS 500ML ONE (17:05)
[2018-01-24] MEDS ORDERED: Tubing IV Secondary IV ONE (17:05)
[2018-01-24 20:00] VITALS: BP 144/98
[2018-01-25] VITALS: BP 128/87
[2018-01-25 04:00] VITALS: BP 118/77
[2018-01-25] MEDS: NovoLOG Insulin Flexpen SUBQ SCH ×4 (06:21→20:58)
[2018-01-25 08:00] VITALS: BP 106/61
--- NOTE | 2018-01-25 08:38 | General Progress Note ---
Assessment/Plan Problem List: (1) Malnutrition ICD Codes: E46 - Unspecified protein-calorie malnutrition SNOMED: 63958292 (2) FTT (failure to thrive) in adult ICD Codes: R62.7 - Adult failure to thrive SNOMED: 011864558 (3) Lactic acidosis ICD Codes: E87.2 - Acidosis SNOMED: 26087406 (4) Diabetes mellitus ICD Codes: E11.9 - Type 2 diabetes mellitus without complications SNOMED: 27848038 (5) Hypertension ICD Codes: I10 - Essential (primary) hypertension SNOMED: 42837421 (6) Rash and other nonspecific skin eruption ICD Codes: R21 - Rash and other nonspecific skin eruption SNOMED: 953391313, 158101351 Assessment/Plan ot pt diet wound care abx cbc bmp am dc plan Subjective Constitutional: Reports: weakness Allergies: Coded Allergies: No Known Allergies (Unverified , 01/22/18) All Systems: reviewed and negative except above Subjective sleepy calm Objective Last 24 Hour Vital Signs Date Time Temp Pulse Resp B/P (MAP) Pulse Ox O2 Delivery O2 Flow Rate FiO2 01/25/18 04:00 97.3 63 18 118/77 (91) 95 01/25/18 00:00 97.7 64 19 128/87 (101) 95 01/24/18 20:19 Room Air 01/24/18 20:00 97.2 62 19 144/98 (113) 97 01/24/18 16:00 97.4 76 18 121/79 (93) 97 01/24/18 12:00 98.1 80 17 118/74 (89) 96 01/24/18 09:00 Room Air 01/24/18 09:00 115/76 Intake and Output 01/24/18 01/25/18 19:00 07:00 Intake Total 520 ml Output Total 875 ml Balance -355 ml Intake Oral 120 ml Other 400 ml Output Urine Total 875 ml Height (Feet): 5 Height (Inches): 10.00 Weight (Pounds): 203 General Appearance: lethargic EENT: normal ENT inspection Neck: normal alignment Cardiovascular: normal peripheral pulses, normal rate, regular rhythm Respiratory/Chest: chest wall non-tender, lungs clear, normal breath sounds Abdomen: normal bowel sounds, non tender, soft Extremities: normal inspection Edema: no edema noted Arm (L), no edema noted Arm (R), no edema noted Leg (L), no edema noted Leg (R), no edema noted Pedal (L), no edema noted Pedal (R), no edema noted Generalized Neurologic: motor weakness Skin: normal pigmentation, warm/dry Objective dry scabbing rashs l shoulder and chest Adis Schneider DO Jan 25, 2018 08:38
[2018-01-25] MEDS: Memantine 5 MG TAB ORAL SCH ×2 (08:46→17:45)
[2018-01-25] MEDS: Aspirin EC 81mg tab ORAL SCH (08:46)
[2018-01-25] MEDS: Heparin 5000 units/ml inj SUBQ SCH ×2 (08:47→20:57)
[2018-01-25] MEDS: Lisinopril 20mg tab ORAL SCH (08:58)
[2018-01-25 12:00] VITALS: BP 110/71
[2018-01-25 16:00] VITALS: BP 100/61
[2018-01-25 20:00] VITALS: BP 98/60
[2018-01-26] VITALS: BP 107/61
[2018-01-26 04:00] VITALS: BP 99/62
[2018-01-26] MEDS: NovoLOG Insulin Flexpen SUBQ SCH ×3 (06:05→16:30)
[2018-01-26 08:00] VITALS: BP 101/62
[2018-01-26 08:47] LABS: BASOPHILS % (AUTO) 0.7 % (0.0-2.0); EOSINOPHILS % (AUTO) 10.1 % (0.0-3.0); HEMATOCRIT 43.7 % (42.0-52.0); LYMPHOCYTES % (AUTO) 23.5 % (20.0-45.0); MEAN CORPUSCULAR VOLUME 88 FL (80-99); MONOCYTES % (AUTO) 11.3 % (1.0-10.0); NEUTROPHILS % (AUTO) 54.4 % (45.0-75.0); PLATELET COUNT 184 K/UL (150-450); RED BLOOD COUNT 4.95 M/UL (4.70-6.10); RED CELL DISTRIBUTION WIDTH 11.9 % (11.6-14.8); WHITE BLOOD COUNT 4.9 K/UL (4.8-10.8)
[2018-01-26] MEDS: Lisinopril 20mg tab ORAL SCH (09:00)
[2018-01-26 09:09] LABS: ANION GAP 8 mmol/L (5-15); BLOOD UREA NITROGEN 16 mg/dL (7-18); CALCIUM 8.8 MG/DL (8.5-10.1); CARBON DIOXIDE 26 MMOL/L (21-32); CHLORIDE 104 MMOL/L (98-107); POTASSIUM 3.5 MMOL/L (3.5-5.1); SODIUM 138 MMOL/L (136-145)
[2018-01-26] MEDS: Memantine 5 MG TAB ORAL SCH (09:43)
[2018-01-26] MEDS: Aspirin EC 81mg tab ORAL SCH (09:43)
[2018-01-26] MEDS: Heparin 5000 units/ml inj SUBQ SCH (09:44)
[2018-01-26 12:00] VITALS: BP 107/66
--- NOTE | 2018-01-26 12:26 | Infectious Diseases Prog Note ---
Assessment/Plan Assessment/Plan Assessment: Rash- likely 2ry to Scabies, s/p Rx Afebrile No leukocytosis- no evidence of UTI -u/a neg -CXR: no acute disease DM HTN HLD MDD/Anxiety Dementia, CAD/DE GERD CVA/TIA w/ hemiplegia SNF resident Plan: - monitor off abx -ok to discharge back to SNF 01/23 SP Permethrin cream and ivermectin x1 ( Rpt in 1 wk, on 01/30 ) 01/23 Sp Cefepime #2 -f/u cx -Monitor CBC/CMP, temperatures -scabies precautions Subjective Allergies: Coded Allergies: No Known Allergies (Unverified , 01/22/18) Subjective afebrile no leukocytosis Objective Vital Signs Last 24 Hour Vital Signs Date Time Temp Pulse Resp B/P (MAP) Pulse Ox O2 Delivery O2 Flow Rate FiO2 01/26/18 09:00 Room Air 01/26/18 09:00 101/62 01/26/18 08:00 97.9 55 17 101/62 (75) 96 01/26/18 04:00 97.9 58 20 99/62 (74) 96 01/26/18 00:00 97.7 57 20 107/61 (76) 97 01/25/18 20:14 Room Air 01/25/18 20:00 97.7 56 20 98/60 (73) 97 01/25/18 16:00 97.2 56 18 100/61 (74) 96 Height (Feet): 5 Height (Inches): 10.00 Weight (Pounds): 203 Objective General Appearance: no apparent distress, alert, , non-toxic HEENT: normocephalic, atraumatic bilateral eye PERRL normal pharynx Neck: full range of motion, supple/symm/no masses Respiratory: chest non-tender, lungs clear, normal breath sounds, no respiratory distress, no retraction, no accessory muscle use, speaking full sentences Cardiovascular : regular rate, rhythm, no edema Gastrointestinal: normal bowel sounds, non tender, soft, non-distended, no guarding, no rebound Musculoskeletal: non-tender, other - hemiplegia at baseline Skin: warm/dry, well hydrated, other - diffuse maculopapular rash with excoriations. Laboratory Tests Test 01/26/18 08:30 White Blood Count 4.9 K/UL (4.8-10.8) Red Blood Count 4.95 M/UL (4.70-6.10) Hemoglobin 15.0 G/DL (14.2-18.0) Hematocrit 43.7 % (42.0-52.0) Mean Corpuscular Volume 88 FL (80-99) Mean Corpuscular Hemoglobin 30.3 PG (27.0-31.0) Mean Corpuscular Hemoglobin Concent 34.4 G/DL (32.0-36.0) Red Cell Distribution Width 11.9 % (11.6-14.8) Platelet Count 184 K/UL (150-450) Mean Platelet Volume 9.0 FL (6.5-10.1) Neutrophils (%) (Auto) 54.4 % (45.0-75.0) Lymphocytes (%) (Auto) 23.5 % (20.0-45.0) Monocytes (%) (Auto) 11.3 % (1.0-10.0) H Eosinophils (%) (Auto) 10.1 % (0.0-3.0) H Basophils (%) (Auto) 0.7 % (0.0-2.0) Sodium Level 138 MMOL/L (136-145) Potassium Level 3.5 MMOL/L (3.5-5.1) Chloride Level 104 MMOL/L (98-107) Carbon Dioxide Level 26 MMOL/L (21-32) Anion Gap 8 mmol/L (5-15) Blood Urea Nitrogen 16 mg/dL (7-18) Creatinine 1.0 MG/DL (0.55-1.30) Estimat Glomerular Filtration Rate mL/min (>60) Glucose Level 190 MG/DL (74-106) H Calcium Level 8.8 MG/DL (8.5-10.1) Current Medications Medications (Trade) Dose Ordered Sig/Jane Route PRN Reason Start Time Stop Time Status Last Admin Dose Admin Acetaminophen (Tylenol) 650 mg Q4H PRN ORAL T>100.5 01/22/18 20:00 02/21/18 19:59 Al Hydroxide/Mg Hydroxide (Mylanta II) 30 ml Q6H PRN ORAL dyspepsia 01/22/18 20:00 02/21/18 19:59 Aspirin (Ecotrin) 81 mg DAILY ORAL 01/23/18 09:00 02/22/18 08:59 01/26/18 09:43 Dextrose (Dextrose 50%) 25 ml Q30M PRN IV Hypoglycemia 01/22/18 20:00 02/21/18 19:59 Dextrose (Dextrose 50%) 50 ml Q30M PRN IV Hypoglycemia 01/22/18 20:00 02/21/18 19:59 Diphenhydramine HCl (Benadryl) 50 mg Q6H PRN ORAL Itching 01/24/18 16:45 02/23/18 16:44 01/24/18 16:56 Heparin Sodium (Porcine) (Heparin 5000 units/ml) 5,000 units EVERY 12 HOURS SUBQ 01/22/18 21:00 02/21/18 20:59 01/26/18 09:44 Insulin Aspart (NovoLOG) BEFORE MEALS AND HS SUBQ 01/22/18 21:30 02/21/18 21:29 01/25/18 20:58 Lisinopril (Prinivil) 20 mg DAILY ORAL 01/23/18 09:00 02/22/18 08:59 Lorazepam (Ativan 2mg/ml 1ml) 0.5 mg Q4H PRN IV For Anxiety 01/22/18 20:00 01/29/18 19:59 Memantine (Namenda) 5 mg TWICE A DAY ORAL 01/23/18 09:00 02/22/18 08:59 01/26/18 09:43 Morphine Sulfate (Morphine Sulfate) 1 mg Q4H PRN IVP Pain 4-10 01/22/18 20:00 01/29/18 19:59 Ondansetron HCl (Zofran) 4 mg Q6H PRN IVP Nausea & Vomiting 01/22/18 20:00 02/21/18 19:59 Polyethylene Glycol (Miralax) 17 gm HSPRN PRN ORAL Constipation 01/22/18 20:00 02/21/18 19:59 Zolpidem Tartrate (Ambien) 5 mg HSPRN PRN ORAL Insomnia 01/22/18 21:00 01/29/18 20:59 Olivia Simon M.D. Jan 26, 2018 12:26
--- NOTE | 2018-01-26 12:33 | Pulmonology Progress Note ---
Assessment/Plan Problems: (1) Pyelonephritis (2) Rash and other nonspecific skin eruption (3) CVA, old, hemiparesis (4) Hypertension (5) Diabetes mellitus Assessment/Plan wbc wnl, urine is clear, afebrile, doubt sepsis and pyelonephritis contact dermatitis? sliding scale diabetic diet symptomatic treatment off abx dc planning Subjective ROS Limited/Unobtainable: No Constitutional: Reports: no symptoms HEENT: Repors: no symptoms Respiratory: Reports: no symptoms Allergies: Coded Allergies: No Known Allergies (Unverified , 01/22/18) Objective Last 24 Hour Vital Signs Date Time Temp Pulse Resp B/P (MAP) Pulse Ox O2 Delivery O2 Flow Rate FiO2 01/26/18 09:00 Room Air 01/26/18 09:00 101/62 01/26/18 08:00 97.9 55 17 101/62 (75) 96 01/26/18 04:00 97.9 58 20 99/62 (74) 96 01/26/18 00:00 97.7 57 20 107/61 (76) 97 01/25/18 20:14 Room Air 01/25/18 20:00 97.7 56 20 98/60 (73) 97 01/25/18 16:00 97.2 56 18 100/61 (74) 96 Intake and Output 01/25/18 01/26/18 19:00 07:00 Intake Total 600 ml Output Total 750 ml Balance 600 ml -750 ml Other 600 ml Output Urine Total 750 ml Objective General Appearance: WD/WN HEENT: normocephalic Respiratory/Chest: chest wall non-tender, lungs clear, normal breath sounds Cardiovascular: normal peripheral pulses, normal rate Abdomen: normal bowel sounds, soft, non tender Genitourinary: normal external genitalia Extremities: no clubbing Skin: no rash Laboratory Tests 01/26/18 08:30: White Blood Count 4.9, Red Blood Count 4.95, Hemoglobin 15.0, Hematocrit 43.7, Mean Corpuscular Volume 88, Mean Corpuscular Hemoglobin 30.3, Mean Corpuscular Hemoglobin Concent 34.4, Red Cell Distribution Width 11.9, Platelet Count 184, Mean Platelet Volume 9.0, Neutrophils (%) (Auto) 54.4, Lymphocytes (%) (Auto) 23.5, Monocytes (%) (Auto) 11.3H, Eosinophils (%) (Auto) 10.1H, Basophils (%) ( Auto) 0.7, Sodium Level 138, Potassium Level 3.5, Chloride Level 104, Carbon Dioxide Level 26, Anion Gap 8, Blood Urea Nitrogen 16, Creatinine 1.0, Estimat Glomerular Filtration Rate , Glucose Level 190H, Calcium Level 8.8 Current Medications Medications (Trade) Dose Ordered Sig/Jane Route PRN Reason Start Time Stop Time Status Last Admin Dose Admin Acetaminophen (Tylenol) 650 mg Q4H PRN ORAL T>100.5 01/22/18 20:00 02/21/18 19:59 Al Hydroxide/Mg Hydroxide (Mylanta II) 30 ml Q6H PRN ORAL dyspepsia 01/22/18 20:00 02/21/18 19:59 Aspirin (Ecotrin) 81 mg DAILY ORAL 01/23/18 09:00 02/22/18 08:59 01/26/18 09:43 Dextrose (Dextrose 50%) 25 ml Q30M PRN IV Hypoglycemia 01/22/18 20:00 02/21/18 19:59 Dextrose (Dextrose 50%) 50 ml Q30M PRN IV Hypoglycemia 01/22/18 20:00 02/21/18 19:59 Diphenhydramine HCl (Benadryl) 50 mg Q6H PRN ORAL Itching 01/24/18 16:45 02/23/18 16:44 01/24/18 16:56 Heparin Sodium (Porcine) (Heparin 5000 units/ml) 5,000 units EVERY 12 HOURS SUBQ 01/22/18 21:00 02/21/18 20:59 01/26/18 09:44 Insulin Aspart (NovoLOG) BEFORE MEALS AND HS SUBQ 01/22/18 21:30 02/21/18 21:29 01/25/18 20:58 Lisinopril (Prinivil) 20 mg DAILY ORAL 01/23/18 09:00 02/22/18 08:59 Lorazepam (Ativan 2mg/ml 1ml) 0.5 mg Q4H PRN IV For Anxiety 01/22/18 20:00 01/29/18 19:59 Memantine (Namenda) 5 mg TWICE A DAY ORAL 01/23/18 09:00 02/22/18 08:59 01/26/18 09:43 Morphine Sulfate (Morphine Sulfate) 1 mg Q4H PRN IVP Pain 4-10 01/22/18 20:00 01/29/18 19:59 Ondansetron HCl (Zofran) 4 mg Q6H PRN IVP Nausea & Vomiting 01/22/18 20:00 02/21/18 19:59 Polyethylene Glycol (Miralax) 17 gm HSPRN PRN ORAL Constipation 01/22/18 20:00 02/21/18 19:59 Zolpidem Tartrate (Ambien) 5 mg HSPRN PRN ORAL Insomnia 01/22/18 21:00 01/29/18 20:59 Ryan Norris MD Jan 26, 2018 12:33
--- NOTE | 2018-01-26 14:16 | General Progress Note ---
Assessment/Plan Problem List: (1) Malnutrition ICD Codes: E46 - Unspecified protein-calorie malnutrition SNOMED: 87402199 (2) FTT (failure to thrive) in adult ICD Codes: R62.7 - Adult failure to thrive SNOMED: 812726654 (3) Lactic acidosis ICD Codes: E87.2 - Acidosis SNOMED: 48861910 (4) Diabetes mellitus ICD Codes: E11.9 - Type 2 diabetes mellitus without complications SNOMED: 37837651 (5) Hypertension ICD Codes: I10 - Essential (primary) hypertension SNOMED: 40893597 (6) Rash and other nonspecific skin eruption ICD Codes: R21 - Rash and other nonspecific skin eruption SNOMED: 786159129, 432475482 Status: stable, progressing Assessment/Plan ot pt diet wound care abx dc if clear Subjective Constitutional: Reports: weakness Allergies: Coded Allergies: No Known Allergies (Unverified , 01/22/18) All Systems: reviewed and negative except above Subjective sleepy calm Objective Last 24 Hour Vital Signs Date Time Temp Pulse Resp B/P (MAP) Pulse Ox O2 Delivery O2 Flow Rate FiO2 01/26/18 12:00 97.6 52 16 107/66 (80) 96 01/26/18 09:00 Room Air 01/26/18 09:00 101/62 01/26/18 08:00 97.9 55 17 101/62 (75) 96 01/26/18 04:00 97.9 58 20 99/62 (74) 96 01/26/18 00:00 97.7 57 20 107/61 (76) 97 01/25/18 20:14 Room Air 01/25/18 20:00 97.7 56 20 98/60 (73) 97 01/25/18 16:00 97.2 56 18 100/61 (74) 96 Intake and Output 01/25/18 01/26/18 19:00 07:00 Intake Total 600 ml Output Total 750 ml Balance 600 ml -750 ml Other 600 ml Output Urine Total 750 ml Laboratory Tests 01/26/18 08:30: White Blood Count 4.9, Red Blood Count 4.95, Hemoglobin 15.0, Hematocrit 43.7, Mean Corpuscular Volume 88, Mean Corpuscular Hemoglobin 30.3, Mean Corpuscular Hemoglobin Concent 34.4, Red Cell Distribution Width 11.9, Platelet Count 184, Mean Platelet Volume 9.0, Neutrophils (%) (Auto) 54.4, Lymphocytes (%) (Auto) 23.5, Monocytes (%) (Auto) 11.3H, Eosinophils (%) (Auto) 10.1H, Basophils (%) ( Auto) 0.7, Sodium Level 138, Potassium Level 3.5, Chloride Level 104, Carbon Dioxide Level 26, Anion Gap 8, Blood Urea Nitrogen 16, Creatinine 1.0, Estimat Glomerular Filtration Rate , Glucose Level 190H, Calcium Level 8.8 Height (Feet): 5 Height (Inches): 10.00 Weight (Pounds): 203 General Appearance: lethargic EENT: normal ENT inspection Neck: normal alignment Cardiovascular: normal peripheral pulses, normal rate, regular rhythm Respiratory/Chest: chest wall non-tender, lungs clear, normal breath sounds Abdomen: normal bowel sounds, non tender, soft Extremities: normal inspection Edema: no edema noted Arm (L), no edema noted Arm (R), no edema noted Leg (L), no edema noted Leg (R), no edema noted Pedal (L), no edema noted Pedal (R), no edema noted Generalized Neurologic: motor weakness Skin: normal pigmentation, warm/dry Objective dry scabbing rashs l shoulder and chest Adis Schneider DO Jan 26, 2018 14:16
[2018-01-26 16:00] VITALS: BP 92/58
--- NOTE | 2018-01-27 08:26 | Discharge Summary ---
Discharge Summary Discharge Summary _ DATE OF ADMISSION: 01/22/2018 DATE OF DISCHARGE: 01/26/2018 REASON FOR ADMISSION: 72 years old male with past medical history of CVA with hemiplegia, hypertension , diabetes, hyperlipidemia, coronary artery disease with history of IA, dementia , was sent from the [facility] for evaluation due to possible urinary tract infection and rash. Upon evaluation blood pressure was on the low side 95/67 ,patient was afebrile ,pulse oximetry on room air was 93%. Physical exam revealed diffuse maculopapular rash with excoriations. Laboratory workup revealed no leukocytosis, stable hemoglobin and hematocrit. Urinalysis revealed no obvious evidence of UTI. Chemistry revealed stable electrolytes and renal parameters. Lactic acid 4.0. Troponin negative. EKG revealed sinus rhythm, no acute ischemic changes. Chest x-ray revealed no acute cardiopulmonary pathology. Patient admitted with diagnosis of rash ,possible scabies, lactic acidosis, possible UTI. CONSULTANTS: pulmonary/hospitalist Dr. Norris ID specialist Dr. Alvares [facility] COURSE: Patient admitted to medical surgical floor. Patient initially started on empiric antibiotics for urinary tract infection. Infectious disease specialist closely followed. Patient undergone treatment with permethrin cream and ivermectin x1 for probable scabies. Patient was on contact isolation. Rash was likely secondary to scabies , as per ID specialist. Blood culture were negative. UA with no evidence of UTI. Patient afebrile, no leukocytosis. Antibiotics discontinues as per ID specialist recommendations; keep patient off antibiotics and observe closely. Symptomatic treatment provided. Antipruritic provided as needed. Home medication resumed. Blood pressure was managed with LUDIVINA inhibitor, remained stable. Lipid panel revealed elevated triglycerides, stable cholesterol and LDL. Patient was educated on low-fat low-cholesterol diet. Antiplatelets therapy with Aspirin was continued. Namenda was continued. Blood sugar was managed with sliding scale of insulin. Pain management was addressed as needed. Bowel regimen instituted. Patient was working with physical and occupational therapists. Dietitian seen and evaluated patient, no evidence of malnutrition. Patient clinically stabilized and was ready for transfer back to [facility] for continuation of care. FINAL DIAGNOSES: Rash , likely secondary to scabies , status post treatment Lactic acidosis History of CVA with hemiplegia Hypertension Diabetes mellitus Hyperlipidemia Coronary artery disease with history of IA Dementia DISCHARGE MEDICATIONS: List of medication was sent to accepting facility DISCHARGE INSTRUCTIONS : Patient was discharged to the senior living facility. Follow up with medical doctor at the facility. I have been assigned to dictate discharge summary for this account. I was not involved in the patient's management. Cherrie Flores NP Jan 27, 2018 08:26
== END 2018-01-26 17:20 | DRG 607 ==
LOC: EDBD 15:31 → EMR 15:53 → 4E 19:00 → EDBEDREQ 20:27
DX: B86 Scabies (principal); E87.2 Acidosis; I69.359 Hemiplegia and hemiparesis following cerebral infarction affecting unspecified side; E11.9 Type 2 diabetes mellitus without complications; Z79.4 Long term (current) use of insulin; I10 Essential (primary) hypertension; R62.7 Adult failure to thrive; I25.10 Atherosclerotic heart disease of native coronary artery without angina pectoris; I25.2 Old myocardial infarction; F03.90 Unspecified dementia, unspecified severity, without behavioral disturbance, psychotic disturbance, mood disturbance, and anxiety; E78.5 Hyperlipidemia, unspecified; F32.9 Major depressive disorder, single episode, unspecified; F41.9 Anxiety disorder, unspecified
CPT/HCPCS: 36415; 71045; 80048; 80053; 80061; 81003; 82550; 82553; 82962; 83605; 84484; 85025; 87040; 87081; 93005; 96360; 99284; J1815